=== PATIENT | female | born 1950 | race Caucasian/White ===

== ENCOUNTER 2016-11-22 11:05 | Day surgery (SDC) | payer MEDICARE, BC ==
[2016-11-22] MEDS ORDERED: MICARDIS20 MG PO (12:55)
[2016-11-22] MEDS ORDERED: LIPITOR20 MG PO (12:55)
[2016-11-22] MEDS ORDERED: VITAMIN B-121000 MCG PO (12:56)
[2016-11-22] MEDS ORDERED: TAMOXIFEN CITRA20 MG PO (12:56)
[2016-11-22] MEDS ORDERED: CENTRUM COMPLE1 EACH PO (12:56)
[2016-11-22 13:03] VITALS: BP 131/77
--- NOTE | 2016-11-22 15:45 | NUR ---
DISCHARGE INSTRUCTIONS REVIEWED WITH PATIENT, DISCHARGED HOME VIA WHEELCHAIR TO PRIVATE VEHICLE WITH SPOUSE
--- NOTE | 2016-12-29 11:24 | OP ---
PATIENT NAME: REILLY DE LA GARZA MEDICAL RECORD: [id number] :46 LOCATION:D.OPS ADMISSION DATE: SURGEON: CARON SALINAS MD DATE OF OPERATION: 11/22/2016 PROCEDURES: Colonoscopy with polypectomy with hot biopsy forceps, colonoscopy with polyp ablation. DIRECTOR OF RETAIL: Caron Salinas MD SCOPE: Olympus video colonoscope. MEDICATIONS: Per TIVA anesthesia. The patient received 200 mg of propofol for this procedure, O2 4 liters. INDICATION FOR THE PROCEDURE: A screening colonoscopy in a patient with an earlier history of breast carcinoma. FINDINGS: Informed consent was given. The patient was made comfortable with the above medications. After reaching an adequate level of sedation by slow IV push, the patient was placed on her left side. The endoscope was then advanced to the cecum where the ileocecal valve and appendiceal orifice were identified. On withdrawal of the scope, the mucosa was carefully inspected. The patient had a 1.5 cm polyp in the ascending colon, removed with hot biopsy forceps technique. Another polyp was seen in the proximal transverse colon, 1 cm in size and removed in the same fashion. On additional withdrawal of the scope and within the rectum, a 1 cm polyp was removed with hot biopsy forcep technique and on retroflexion, internal hemorrhoids were appreciated and we then discovered another polyp very close to the anal opening and this was simply ablated. It was approximately 1 cm in size. The scope was then withdrawn. IMPRESSION: 1. Removal of polyps as described in the text, ascending colon polyp of 1.5 cm in size, proximal transverse colon polyp 1 cm in size, rectal polyp 1 cm in size. 2. Distal rectal polyp 1 cm in size ablated. 3. Internal hemorrhoids. PLAN: 1. No aspirin or anti-inflammatory drugs if possible times 14 days. 2. High fiber diet. 3. Return to clinic on a p.r.n. basis. TRANSINT:[id number] Voice Confirmation ID: [id number] DOCUMENT ID: [id number] OPERATIVE REPORT [id number] REILLY DE LA GARZA CARON SALINAS MD at 1124 CC: CORNELIA HANSEN MD and LOR SALAZAR [id number] DICTATION DATE: 11/22/16 1432 [employer] SUPERVISOR: 11/22/16 1500 [facility] 11/22/16 [facility] [address] [facility] [place] [place] [address]
== END 2016-11-22 15:45 | disposition home or self-care (01) ==
LOC: D.OPS 11:05
DX: Z12.11 Encounter for screening for malignant neoplasm of colon (principal); K63.5 Polyp of colon; K62.1 Rectal polyp; K64.8 Other hemorrhoids; Z85.3 Personal history of malignant neoplasm of breast